=== PATIENT | female | born 1950 | race Asian ===

== ENCOUNTER 2025-06-29 14:38 | Outpatient (AMB) | payer MEDICAID, SELFPAY ==
--- NOTE | 2025-06-29 15:17 | A.OFFVIS_ITS ---
Intake Visit Reasons: Follow Up Allergies No Known Allergies Allergy (Verified 06/25/25 10:48) HPI Comments Details: 75 yo RH woman with type II DM, osteoarthritis s/p bilateral knee replacement, was here with difficulty walking and loss of balance. This started around 2020 when she started using a cane. In 2022, she started using a walker and now was in wheel chair. She could still get up and use a walker with great difficulty. Her bladder function was ok. Her memory was except during last few months she was getting confused. In 2020, she had an EMG/NCS in [facility] that revealed severe axonal peripheral neuropathy. She also had MRI of whole spine in Aug, which did not reveal any significant issues or explanation of her problem. She is presenting with painful diabetic neuropathy. She experiences neuropathic pain affecting her lower extremities with pricking quality, fluctuating in soreness but more intense at night. Difficulty in ambulation requires the use of a walker for support, and she frequently needs assistance for short distances such as going to the bathroom. While the use of pregabalin initially was prescribed, it resulted in unwanted urinary incontinence leading to its discontinuation. She currently relies on Tylenol, with minimal efficacy in pain management. The patient also has a prior diagnosis of Alzheimer?s disease dementia, as evidenced by a brain MRI showing significant changes. Her cognitive function remains relatively intact, with a preserved ability to remember past events even though recollection of recent happenings is slightly delayed. She demonstrates no motor symptoms suggestive of Parkinson?s disease, and her Alzheimer?s symptoms are not detrimental to her day-to-day life tasks. Her family notes that she sustains her familiarity with people and surroundings and does not exhibit hardness in feelings or problematic emotional regulation. [facility] Medical History (Updated 06/29/25 @ 15:28 by Luz Aguilar MD) Osteoarthritis Hyperlipemia Hypothyroidism (acquired) HTN (hypertension) Type 2 diabetes mellitus Review of Systems Narrative - Neurological: Reports severe neuropathic pain in feet and legs, worsened at night. Denies tremors or Parkinsonian symptoms. - Cognitive: Reports minor delay in recalling recent activities, maintains long- term memory intact. - Genitourinary: Previously experienced urinary incontinence with pregabalin. - Musculoskeletal: Reports difficulty in ambulation and use of walker for support. Physical Exam Neuro Other: Mental Status: Alert and awake with normal spontaneity of speech fluency comprehension and affect. Cranial Nerves: CN II: Visual dyer full to confrontation, visual acuity intact. CN III, IV, : Pupils equal, round, reactive to light and accommodation. Extraocular movements are normal. CN V: Facial sensation is normal. CN VII: Facial movements symmetrical. CN VIII: Hearing intact to bedside conversation is normal. CN IX, X: Palate elevates symmetrically. CN XI: Shoulder shrug and head turn symmetrical. CN XII: Tongue midline without atrophy or fasciculations. Motor: She is in a wheelchair. There was moderate feet and for leg swelling. Deep tendon reflexes are absent. Extrapyramidal: Full facial expressions and blinking. No rigidity. Movements are appropriate with no tremor or abnormality. Speech: Normal; no dysarthria or tremor. Assessment & Plan Assessment & Plan (1) Alzheimer disease: Comment: MRI brain WO at [facility] in January 2025: Mod to severe atrophy MRI C + T + LS spine in [facility] in Aug 2024: Diff DJD, mild spondyloarthritis in cervical spine, mild to mod L 3/4 stenosis EMG/NCS L arm and legs in [facility] in 2020: No response in legs, arm was ok Code(s): G30.9 - Alzheimer's disease, unspecified; F02.80 - Dementia in other diseases classified elsewhere, unspecified severity, without behavioral disturbance, psychotic disturbance, mood disturbance, and anxiety Category: Medical (2) Multifactorial gait disorder: Code(s): R26.89 - Other abnormalities of gait and mobility Category: Medical (3) Diabetic neuropathy: Code(s): E11.40 - Type 2 diabetes mellitus with diabetic neuropathy, unspecified Category: Medical Qualifiers: Diabetes mellitus type: type 2 Diabetes mellitus complication detail: diabetic polyneuropathy Qualified Code(s): E11.42 - Type 2 diabetes mellitus with diabetic polyneuropathy Plan Impression: 1. 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 Painful diabetic neuropathy 3. Alzheimer dementia Recommendations 1. Reassurance and education 2. She was using Tylenol at night for pain, which she can use 3. Carbamazepine 100 mg 1-2 at night for pain 4. She has been using alprazolam 0.25 mg at night obtain from [facility] at night, which has been working for sleep Medications: New carbamazepine ER (Carbatrol) 100 mg PO DAILY 30 caps 0RF Coding Level of Care Code Est Pt Level 4 (27716) Diagnoses Alzheimer disease G30.9; F02.80 Multifactorial gait disorder R26.89 Diabetic polyneuropathy associated with type 2 diabetes mellitus E11.42 Diabetes mellitus type: type 2 Diabetes mellitus complication detail: diabetic polyneuropathy
--- OUTSIDE RECORDS SUMMARY | 2025-06-29 18:27 | XMS_ITS | Encounter Summary ---
Author Organization [facility] Address [address] [address] Care Team Providers Care Marketing Sales Supervisor Name Role Phone Samantha Mendez Primary Care Provider [phone] Encounter Details Date Type Department Care Team ([facility] st Contact Info) Description 03/15/2023 Interim Notes [facility] [address] [place] [address] [place] [address] [place], [place] [id number] Social History Tobacco Use Types Packs/Day Years Used Date Smoking Tobacco: Never Smokeless Tobacco: Never Alcohol Use Standard Drinks/Week Comments Not Currently 0 (1 standard drink = 0.6 oz pur e alcohol) Social Connections Answer Date Recorded Social Connections and Isolation 1 05/24/2022 Financial Resource Strain Answer Date R ecorded Financial Resource Strain 0 2021 Stress Answer Date Recorded Stress 0 05/24/2022 Physical Activity Answer Date Recorded Physical Activity 0 05/24/2022 Food Insecurity Answer Date Recorded Food 0 05/24/2022 Transportation Needs Answer Date Record ed Transportation 0 05/24/2022 Housing Stability Answer Date Recorded Housing 0 05/24/2022 Safety and Environment Answer Date Baljeet rded Safety 0 05/24/2022 Utilities Answer Date Recorded Utilities 0 05/24/2022 Employment Answer Date Recorded Stress 0 05/24/2022 Comments No Sex and Gender Information Value Date Recorded Sex Assigned at Female 05/24/2022 6:42 AM PDT Legal Sex Female 1:16 PM PDT Gender Identity Female 05/24/2022 6:42 AM PDT Sexual Orientation Straight 05/24/2022 6: 42 AM PDT COVID-19 Exposure Response Date Recorded In the last 10 days, have yo u been in contact with someone who was confirmed or suspected to have Coronavirus/COVID-19? No / Unsure 02/26/2023 9:38 AM EDT documented as of this encounter Plan of Treatment Upcoming Encounters Date Type Department Care Team ([facility] st Contact Info) Description 07/08/2025 9:40 AM EDT Office Visit [facility] [address] [place] [phone] Dyllan Morgan MD [address] [place] [id number] documented as of this encounter Visit Diagnoses Not on filedocumented in this encounter Additional Health Concerns Assessment Noted Time PHQ-9 Depression Total Score: 0 01/10/20 23 2:27 PM PDT A Depression follow-up plan has been documented for the patient 01/09/2023 5:35 PM PDT documented as of this encounter Care Teams Marketing Sales Supervisor Relationship Specialty Start Date End Date Samantha Mendez PA [address] [place] [id number] PCP - General Primary Care 10/12/23 documented as of this encounter
--- OUTSIDE RECORDS SUMMARY | 2025-06-29 18:27 | XMS_ITS | Clinical Summary ---
Author Organization [facility] Address [facility] [address] [place] [address] Care Team Providers Care Chemical Treatment Operator Name Role Phone Samantha Mendez Primary Care Provider [phone] Source Comments PLEASE NOTE, if this patient is a minor, it may be UNLAWFUL to discuss sensitive information that is contained in these records (such as FAMILY PLANNING, MENTAL HEALTH or SUBSTANCE ABUSE) with the minor patient's parent or other person without the patient's specific authorization.[facility] Allergies No known active allergies Medications betahistine HCl (BETAHISTINE, BULK, MISC)Indications: vertigo by miscellaneous route Indications: vertigo Active pregabalin (LYRICA) 75 mg capsuleIndication s:diabetic peripheral neuropathy Take 75 mg by mouth 1 to 2 (one to two) times daily as needed Indications: diabetic complication causing injury to some body nerves Active pramoxine-calamin e (CALOHIST) 1-8 % lotion Apply topically 2 (two) times daily as needed for other reason (itching) 180 mL 1 04/19/20 23 Active letrozole (FEMARA) 2.5 mg tablet Take 1 Tablet by mouth once daily 30 Tablet 2 05/21/20 23 Active ammonium lactate (LAC-HYDRIN) 12 % lotion Apply topically as needed for dry skin 400 g 1 05/30/20 23 Active meclizine (ANTIVERT) 25 mg tablet Take 1 Tablet by mouth once daily as needed for nausea or dizziness 30 Tablet 1 06/26/20 23 Active MISCELLANEOUS MEDICAL SUPPLY MISCIndications:F unctional incontinence,Prim karlos osteoarthritis of both knees by miscellaneous route daily. XXL adult pull ups. Dx: Functional incontinence Duration: lifetime 100 Each 2 04/16/20 24 Active MISCELLANEOUS MEDICAL SUPPLY MISCIndications:F unctional incontinence,Prim karlos osteoarthritis of both knees,Hypothyroid ism, unspecified type by miscellaneous route daily Toilet seat riser with side bars. Dx: Functional incontinence, Osteoarthritis of knees bilaterally. Duration: 99 years 1 Each 12/25/19 Active compress.stocking ,knee,reg,medIndi cations:Edema of both lower extremities due to peripheral venous insufficiency,Deepak icose veins of both legs with edema 15-20 mm Hg 1 pair of compression stockings. JARETT 99 2 Each 04/23/20 Active multivitamin tablet Take 1 Tablet by mouth once daily 90 Tablet 2 01/03/20 25 Active amLODIPine (NORVASC) 5 mg tablet TAKE 1 TABLET BY MOUTH EVERY DAY 90 Tablet 3 01/28/20 [address] aspirin [address] tablet Take 1 Tablet by mouth once daily 90 Tablet 3 01/22/20 25 026 Active metoprolol succinate XL (TOPROL-XL) 50 mg 24 hr tablet TAKE 1 TABLET BY MOUTH 2 TIMES DAILY INDICATIONS: HIGH BLOOD PRESSURE 180 Tablet 1 01/28/20 25 Active valsartan (DIOVAN) 160 mg tabletIndications :Primary hypertension Take 1 Tablet by mouth once daily. 90 Tablet 1 03/27/20 25 Active atorvastatin (LIPITOR) 10 mg tabletIndications :Prescription refill TAKE 1 TABLET BY MOUTH EVERY DAY 90 Tablet 1 04/01/20 25 Active metFORMIN (GLUCOPHAGE) 500 mg tabletIndications :Type 2 diabetes mellitus with other neurologic complication, without long-term current use of insulin Take 1 Tablet by mouth once daily with breakfast. 90 Tablet 1 04/09/20 25 Active cetirizine (ZYRTEC) 10 mg tabletIndications :Prescription refill Take 1 Tablet by mouth once daily as needed for allergies. 90 Tablet 1 05/26/20 25 Active dapagliflozin propanediol (FARXIGA) 10 mg tab 30 each, 0 Refill(s), TAKE 1 TABLET BY MOUTH EVERY DAY BEFORE LUNCH, 0 Refills, 04/03/23 2:24:00 PM EDT, Partial fill upon patient request if the prescription is for a schedule II opioid drug. 04/03/20 Active ketorolac (ACULAR) 0.5 % ophthalmic solution 10 mL, 0 Refill(s), PLEASE SEE ATTACHED FOR DETAILED DIRECTIONS, 0 Refills, 04/03/23 2:24:00 PM EDT, Partial fill upon patient request if the prescription is for a schedule II opioid drug. 04/03/20 Active metoprolol tartrate (LOPRESSOR) 50 mg tablet Take 50 mg by mouth. 06/26/20 Active DAILY-SAHARA, WITH FOLIC ACID, 400 mcg tab Take 1 Tablet by mouth once daily. 04/10/20 Active pregabalin (LYRICA) 150 mg capsule Take 150 mg by mouth nightly at bedtime. 04/06/20 Active MISCELLANEOUS MEDICAL SUPPLY MISCIndications:F unctional incontinence by miscellaneous route once daily DX: urinary incontinence Supply: bed chucks/pads JARETT: 99. 100 Each 3 05/27/20 Active levothyroxine 50 mcg tabletIndications :Other specified hypothyroidism Take 1 Tablet by mouth every morning before breakfast. 90 Tablet 1 05/27/20 Active triamcinolone (KENALOG) 0.1 % ointmentIndicatio ns:Eczema, unspecified type Apply topically 2 (two) times daily. 15 g 05/27/20 25 Active hydrOXYzine HCL (ATARAX) 10 mg tabletIndications :Eczema, unspecified type,Itching,Itch y scalp Take 1 Tablet by mouth 3 (three) times daily as needed for anxiety or itching. 90 Tablet 2 06/23/20 25 Active ketoconazole (NIZORAL) 2 % shampooIndication s:Itchy scalp Apply topically once daily as needed for itching. 120 mL 2 06/23/20 Active gemfibroziL (LOPID) 600 mg tablet 600 Unknown, oral, 0 Refill(s), Take 600 mg by mouth, Refills 0, 06/25/22 8:00:00 PM EDT, Partial fill upon patient request if the prescription is for a schedule II opioid drug. 06/25/20 025 Disconti nued(The rapy complete d/Not needed) Active Problems Problem Noted Date Diagnosed Date Venous hypertension of lower extremity 5 Leg swelling 12/15/2024 Osteoarthritis of knees, bilateral 04/19/2023 Edema of both lower extremit ies due to peripheral venous insufficiency 01/09/2023 Glaucoma 06/07/2022 Cataract 06/07/2022 Primary hypertension 05/24/2022 Vertigo 05/24/2022 Type 2 diabetes mellitus, wi thout long-term current use of insulin 05/24/2022 Hyperlipidemia 05/24/2022 Hypothyroid 05/24/2022 Hx of mastectomy, right 05/24/2022 History of right breast cancer 05/24/2022 Total knee replacement status, bilateral 022 Risk for falls 05/24/2022 Asymptomatic varicose veins of bilateral lower e xtremities 05/24/2022 Neuropathy 05/24/2022 Encounters Date Type Department Care Team Description 06/23/2025 8:00 AM EDT Telemedicine Visit [facility] [address] [place] [address] Sheng Trinh PA-C 05/27/2025 2:40 PM EDT Interim Notes [address] [address] 05/27/2025 2:20 PM EDT Office Visit [facility] [address] [place] [address] Sheng Trinh PA-C 04/23/2025 Interim Notes [address] [address] Rodo Cordero [place] 04/20/2025 Interim Notes [address] [address] Abbie Mueller [place] 04/14/2025 Results Follow-Up [address] [address] Sheng Trinh PA-C 04/09/2025 8:20 AM EDT Telemedicine Visit [address] [address] Sheng Trinh PA-C from Last 3 Months Immunizations Immunization Administration Dates Next Due [employer] COVID-19 Vaccine 10/14/2021,12/12/19 21,11/10/2020 Flu, Adjuvant, 65y+ (Fluad) 06/01/2023, Influenza (FLUZONE), high-do se, trivalent, PF 05/13/2024 PNEUMOCOCCAL CONJUGATE PCV 20 (Prevnar 20) 02/10 Pfizer COVID vaccine, COMSARANYA STATON, carlson cap, 12+ 05/23/2022,02/26/2022 Social History Tobacco Use Types Packs/Day Years Used Date Smoking Tobacco: Never Smokeless Tobacco: Never Tobacco Cessation:Counseling Given: Yes Alcohol Use Standard Drinks/Week Comments Not Currently 0 (1 standard drink = 0.6 oz pur e alcohol) Social Connections Answer Date Recorded How often do you feel lonely or isolated from th ose around you? 1 05/13/2024 Financial Resource Strain Answer Date R ecorded Hard to pay for: Food 1 05/13/2024 Stress Answer Date Recorded Do you feel these kinds of stress these days? 1 05/13/2024 Physical Activity Answer Date Recorded Physical Activity 0 05/24/2022 Food Insecurity Answer Date Recorded Hard to pay for: Food 1 05/13/2024 Transportation Needs Answer Date Record ed Hard to pay for: Transportation 1 05/13/2024 Housing Stability Answer Date Recorded Hard to pay for: Rent/Mortgage payment 1 05/13/2024 Safety and Environment Answer Date Baljeet rded Safety 0 05/24/2022 Utilities Answer Date Recorded Hard to pay for: Utilities 1 05/13 Employment Answer Date Recorded Stress 0 05/24/2022 Comments No Sex and Gender Information Value Date Recorded Sex Assigned at Female 05/24/2022 6:42 AM PDT Legal Sex Female 1:16 PM PDT Gender Identity Female 05/24/2022 6:42 AM PDT Sexual Orientation Straight 05/24/2022 6: 42 AM PDT Last Filed Vital Signs Vital Sign Reading Time Taken Comments Blood Pressure 120/70 05/27/2025 2:18 PM EDT Pulse 67 05/27/2025 2:18 PM EDT Temperature 36.2 C (97.1 F) 05/27/2025 2:18 PM EDT Respiratory Rate 18 05/27/2025 2:18 PM EDT Oxygen Saturation 100% 05/27/2025 2:18 PM EDT Inhaled Oxygen Concentration - - Weight 75.8 kg (167 lb) 04/09/2025 8:48 AM EDT Height 149.9 cm (4' 11 ) 05/27/2025 2:18 PM EDT Body Mass Index 33.73 04/09/2025 8:48 AM EDT Plan of Treatment Upcoming Encounters Date Type Department Care Team (Late st Contact Info) Description 07/08/2025 9:40 AM EDT Office Visit [facility] [address] [place] [address] Dyllan Morgan MD [address] [place] [address] Health Maintenance Due Date Last Done Comments Dental Examination 1950 Imm-DTaP/Tdap/Td (1 - Tdap) 1969 CT Colonography 1995 FIT/gFOBT 1995 Fecal DNA 1995 Flexible Sigmoidoscopy 1995 Imm-Zoster, Recombinant (1 of 2) 2000 Diabetes Foot Exam 07/04/2023 07/04/2022 Retinopathy Screening 01/03/2024 01/02/2023 , 01/02/2023, 06/05/2022 Imm-RSV (adult) (1 - 1-dose 75+ series) 2025 Falls Prevention 04/23/2025 04/23/2024, 05/24/2022 [id number] (2024- season) 2025 06/01/2023, 05/23/2022, 02/26/2022, Additional history exists Imm-Influenza (#1) 2025 05/13/2024, 0 06/01/2023, 05/23/2022 TSH Monitoring 05/13/2025 05/13/2024, 06/0 11/2023, 06/11/2023, Additional history exists Hemoglobin A1c 10/14/2025 04/13/2025, 04/1 09/2024, 05/13/2024, Additional history exists Lipid Screening 04/13/2026 04/13/2025, 09/0 11/2023, 06/11/2023, Additional history exists Serum Creatinine 04/13/2026 04/13/2025, 07/2025, 05/13/2024, Additional history exists Annual Wellness (Adult): Indicated (All Coverage) 05/27/2026 05/27/2025, 05/13/2024, 01/09/2023 Tobacco Screening 05/27/2026 05/27/2025, 01/09/2023 Urine Albumin Creatinine Ratio Screening 06/19/2026 06/19/2025, 05/13/2024, 01/09/2023 Breast Cancer Screening (Mammogram) 12/12/2026 12/12/2024, 07/08/2022 Colonoscopy 01/18/2033 01/18/2023 Colorectal Cancer Screening 01/18/2033 Hepatitis C Screening Completed 05/25/2022 Bone Density Screening Completed 07/11/2022 Imm-Pneumococcal 50+ Completed 02/11/2024 Alcohol and Drug Screen Addressed 01/03/20, 05/13/2024, 04/23/2024, Additional history exists Overridden with the intention of not completing the topic Depression Annual Screen Completed 01/02/2025 Procedures Procedure Name Priority Date/Time Associated Diagnosis Comments MICROALBUMIN/CREATINI NE RATIO, URINE, RANDOM Routine 06/19/2025 12:29 PM EDT Type 2 diabetes mellitus with other neurologic complication, without long-term current use of insulin MEDICATIONS SCANNED DOCUMENT 04/20/2025 3:00 AM EDT MEDICATIONS SCANNED DOCUMENT 04/17/2025 3:00 AM EDT LIPID PANEL Routine 04/13/2025 8:41 AM EDT Type 2 diabetes mellitus with other neurologic complication, without long-term current use of insulin ([facility]) HEMOGLOBIN GLYCOSYLATED A1C Routine 04/13/2025 8:41 AM EDT Type 2 diabetes mellitus with other neurologic complication, without long-term current use of insulin ([facility]) COMPREHENSIVE METABOLIC PANEL Routine 04/13/2025 8:41 AM EDT Type 2 diabetes mellitus with other neurologic complication, without long-term current use of insulin ([facility]) BLOOD COUNT COMPLETE AUTO&AUTO DIFRNTL WBC Routine 04/13/2025 8:41 AM EDT Type 2 diabetes mellitus with other neurologic complication, without long-term current use of insulin ([facility]) MEDICATIONS SCANNED DOCUMENT 04/09/2025 3:00 AM EDT THYROID CASCADING REFLEX PANEL Routine 05/13/2024 4:07 PM EDT Hypothyroidism, unspecified type REFERRAL FOR COLONOSCOPY Routine 01/18/2023 3:00 AM EDT Colon cancer screening EYE EXAM 01/02/2023 3:00 AM EDT HISTORIC DEXA SCAN 07/11/2022 3: 00 AM EDT HISTORIC MAMMOGRAM 07/08/2022 3: 00 AM EDT REFERRAL TO PODIATRY Routine 07/04/2022 3:00 AM EDT Type 2 diabetes mellitus without complication, without long-term current use of insulin ([facility]) Neuropathy HEPATITIS C AB W/RFLX HCV RNA, QT, RT PCR Routine 05/25/2022 8:36 AM EDT Encounter to establish care Primary hypertension Type 2 diabetes mellitus without complication, without long-term current use of insulin ([facility]) Hyperlipidemia, unspecified hyperlipidemia type from Last 3 Months or Most Recently Relevant to Health Maintenance Results * MICROALBUMIN/CREATININE RATIO, URINE, RANDOM Urine Routine (06/19/2025 12:29 PM EDT) CREATININE, RANDOM URINE 33 20 - 275 mg/dL 06/20/2025 5:46 PM EDT [facility] MICROALBUMIN 0.8 mg/dL 06/20/2025 5:46 PM EDT [facility] MICROALBUMIN/CRE ATININE RATIO, RANDOM URINE 24 <30 mg/g creat 06/20/2025 5:46 PM EDT [facility] Urine Urine specimen / Unknown 06/19/2025 12:29 PM EDT 06/20/2025 5:36 AM EDT Narrative [facility] [employer] [facility] - 06/20/2025 5:51 PM EDT Reference Range Not established . The ADA defines abnormalities in albumin excretion as follows: . Albuminuria Category Result (mg/g creatinine) . Normal to Mildly increased <30 Moderately increased 30-299 Severely increased > OR = 300 . The ADA recommends that at least two of three specimens collected within a 3-6 month period be abnormal before considering a patient to be within a diagnostic category. us Sheng Trinh PA-C LAB URINE AMBULATORY Final R esult [facility] [address] [address], [facility] [address] [place] [address] * MEDICATIONS SCANNED DOCUMENT (04/20/2025 3:00 AM EDT) Only the most recent of3 resultswithin the time period is included. 04/20/2025 3:00 AM EDT us Samantha ADAMS SCAN MEDS OTHER ORDERS Final Res ult * (ABNORMAL) BLOOD COUNT COMPLETE AUTO&AUTO DIFRNTL WBC Routine (04/13/2025 8:41 AM EDT) WHITE BLOOD CELL COUNT 6.7 3.8 - 10.8 Thousand/ uL 04/14/2025 4:00 AM EDT [employer] RED BLOOD CELL COUNT 3.91 3.80 - 5.10 Million/u L 04/14/2025 4:00 AM EDT [facility] HEMOGLOBIN 11.3(L) 11.7 - 15.5 g/dL 04/14/2025 4:00 AM EDT [facility] HEMATOCRIT 35.5 35.0 - 45.0 % 04/14/2025 4:00 AM [employer] MCV 90.8 80.0 - 100.0 fL 04/14/2025 4:00 AM [employer] MCH 28.9 27.0 - 33.0 pg 04/14/2025 4:00 AM [employer] MCHC 31.8(L) 32.0 - 36.0 g/dL 04/14/2025 4:00 AM [employer] RDW 14.1 11.0 - 15.0 % 04/14/2025 4:00 AM [employer] PLATELET COUNT 169 140 - 400 Thousand/ uL 04/14/2025 4:00 AM EDT [facility] MPV 11.6 7.5 - 12.5 fL 04/14/2025 4:00 AM EDT [facility] ABSOLUTE NEUTROPHILS 3,953 1,500 - 7,800 cells/uL 04/14/2025 4:00 AM EDT [facility] ABSOLUTE LYMPHOCYTES 1,849 850 - 3,900 cells/uL 04/14/2025 4:00 AM EDT [facility] ABSOLUTE MONOCYTES 409 200 - 950 cells/uL 04/14/2025 4:00 AM EDT [facility] ABSOLUTE EOSINOPHILS 429 15 - 500 cells/uL 04/14/2025 4:00 AM EDT [facility] ABSOLUTE BASOPHILS 60 0 - 200 cells/uL 04/14/2025 4:00 AM EDT [facility] NEUTROPHILS PCT 59 % 4:00 AM EDT [facility] LYMPHOCYTES 27.6 % 04/14/2025 4:00 AM [employer] [facility] MONOCYTES 6.1 % 04/14/2025 4:00 AM [employer] EOSINOPHILS 6.4 % 04/14/2025 4:00 AM [facility] BASOPHILS 0.9 % 04/14/2025 4:00 AM [facility] Blood Blood / Unknown 04/13/2025 8 :41 AM EDT 04/14/2025 1:56 AM EDT Narrative [facility] - 04/14/2025 4:26 AM EDT FASTING:YES For adults, a slight decrease in the calculated MCHC value (in the range of 30 to 32 g/dL) is most likely not clinically significant; however, it should be interpreted with caution in correlation with other red cell parameters and the patient's clinical condition. us Sheng Trinh PA-C LAB - BLOOD DRAW Final Resul t [facility] [address] [address], [facility] [address] [address] * (ABNORMAL) HEMOGLOBIN GLYCOSYLATED A1C Routine (04/13/2025 8:41 AM EDT) HEMOGLOBIN A1C 6.5(H) <5.7 % 04/14/2025 5:01 AM EDT [facility] Blood Blood / Unknown 04/13/2025 8 :41 AM EDT 04/14/2025 1:56 AM EDT Narrative [facility] - 04/14/2025 5:11 AM EDT FASTING:YES For someone without known diabetes, a hemoglobin A1c value of 6.5% or greater indicates that they may have diabetes and this should be confirmed with a follow-up test. . For someone with known diabetes, a value <7% indicates that their diabetes is well controlled and a value greater than or equal to 7% indicates suboptimal control. A1c targets should be individualized based on duration of diabetes, age, comorbid conditions, and other considerations. . Currently, no consensus exists regarding use of hemoglobin A1c for diagnosis of diabetes for children. . us Sheng Trinh PA-C LAB - BLOOD DRAW Final Resul t [facility] [address] [address], [facility] [address] [address] * LIPID PANEL Routine (04/13/2025 8:41 AM EDT) CHOLESTEROL, TOTAL 142 <200 mg/dL 04/14/2025 7:25 AM EDT [facility] HDL CHOLESTEROL 59 > OR = 50 mg/dL 04/14/2025 7:25 AM EDT [facility] TRIGLYCERIDES 84 <150 mg/dL 04/14/2025 7:25 AM EDT [facility] LDL-CHOLESTEROL 67 mg/dL (calc) 04/14/2025 7:25 AM EDT [facility] CHOL/HDLC RATIO 2.4 <5.0 (calc) 04/14/2025 7:25 AM EDT [facility] NON-HDL CHOLESTEROL 83 <130 mg/dL (calc) 04/14/2025 7:25 AM EDT [facility] Blood Blood / Unknown 04/13/2025 8 :41 AM EDT 04/14/2025 6:02 AM EDT Narrative [facility] - 04/14/2025 7:25 AM EDT FASTING:YES Reference range: <100 . Desirable range <100 mg/dL for primary prevention; <70 mg/dL for patients with CHD or diabetic patients with > or = 2 CHD risk factors. . LDL-C is now calculated using the Shantell calculation, which is a validated novel method providing better accuracy than the Friedewald equation in the estimation of LDL-C. Robby ALEXIS et al. GEORGE. 2013;310(19): 8411-5590 (http://education.Novav[employer] AB/faq/VDU352) For patients with diabetes plus 1 major ASCVD risk factor, treating to a non-HDL-C goal of <100 mg/dL (LDL-C of <70 mg/dL) is considered a therapeutic option. us Sheng Trinh PA-C LAB - BLOOD DRAW Final Resul t [email or web address] [address] [place] [address], [employer] [address] [place] [id number] * (ABNORMAL) COMPREHENSIVE METABOLIC PANEL Routine (04/13/2025 8:41 AM EDT) GLUCOSE 130(H) 65 - 99 mg/dL 04/14/2025 7:25 AM EDT [facility] UREA NITROGEN (BUN) 15 7 - 25 mg/dL 04/14/2025 7:25 AM EDT [facility] CREATININE (blood) 0.87 0.60 - 1.00 mg/dL 04/14/2025 7:25 AM EDT [facility] EGFR 70 > OR = 60 mL/min/1. 73m2 04/14/2025 7:25 AM EDT [facility] BUN/CREATININE RATIO SEE NOTE: 6 - 22 (calc) 04/14/2025 7:25 AM EDT [facility] SODIUM 134(L) 135 - 146 mmol/L 04/14/2025 7:25 AM EDT [facility] POTASSIUM 4.4 3.5 - 5.3 mmol/L 04/14/2025 7:25 AM EDT [facility] CHLORIDE 99 98 - 110 mmol/L 04/14/2025 7:25 AM EDT [facility] CARBON DIOXIDE 28 20 - 32 mmol/L 04/14/2025 7:25 AM EDT [facility] CALCIUM 9.2 8.6 - 10.4 mg/dL 04/14/2025 7:25 AM EDT [facility] PROTEIN, TOTAL 6.6 6.1 - 8.1 g/dL 04/14/2025 7:25 AM EDT [facility] ALBUMIN 4.0 3.6 - 5.1 g/dL 04/14/2025 7:25 AM EDT [facility] GLOBULIN 2.6 1.9 - 3.7 g/dL (calc) 04/14/2025 7:25 AM EDT [facility] ALBUMIN/GLOBULI N RATIO 1.5 1.0 - 2.5 (calc) 04/14/2025 7:25 AM [employer] [facility] BILIRUBIN, TOTAL 0.4 0.2 - 1.2 mg/dL 04/14/2025 7:25 AM [facility] ALKALINE PHOSPHATASE 70 37 - 153 U/L 04/14/2025 7:25 AM [facility] AST 17 10 - 35 U/L 04/14/2025 7:25 AM [employer] [facility] ALT 12 6 - 29 U/L 04/14/2025 7:25 AM [facility] Blood Blood / Unknown 04/13/2025 8 :41 AM EDT 04/14/2025 6:02 AM EDT Narrative [facility] - 04/14/2025 7:25 AM EDT FASTING:YES . Fasting reference interval . For someone without known diabetes, a glucose value >125 mg/dL indicates that they may have diabetes and this should be confirmed with a follow-up test. . Not Reported: BUN and Creatinine are within reference range. . Sheng Trinh PA-C LAB - BLOOD DRAW Final Resul t [facility] [address] [address], [facility] [address] [place] [address] * THYROID CASCADING REFLEX PANEL (05/13/2024 4:07 PM EDT) TSH 1.32 0.40 - 4.50 mIU/L [facility] Blood Blood / Unknown 05/13/2024 4 :07 PM EDT 05/13/2024 4:07 PM EDT Sheng Trinh PA-C LAB - BLOOD DRAW Edited Resu lt - Final [facility] [address] [address], [facility] [address] [address] * REFERRAL FOR COLONOSCOPY (01/18/2023 3:00 AM EDT) 01/18/2023 3:00 AM EDT Marlene Betancur SWITCHING CLERK-C REFERRAL Edited Resul t - Final * EYE EXAM (01/02/2023 3:00 AM EDT) 01/02/2023 3:00 AM EDT Marlene Betancur SWITCHING CLERK-C OTHER Final Result * HISTORIC DEXA SCAN (07/11/2022 3:00 AM EDT) 07/11/2022 3:00 AM EDT Marlene Betancur SWITCHING CLERK-C IMG DXA Final Result * HISTORIC MAMMOGRAM (07/08/2022 3:00 AM EDT) 07/08/2022 3:00 AM EDT Samantha ADAMS IMG MAMMO Final Result * REFERRAL TO PODIATRY (07/04/2022 3:00 AM EDT) 07/04/2022 3:00 AM EDT Marlene Betancur SWITCHING CLERK-C REFERRAL Edited Resul t - Final * HEPATITIS C AB W/RFLX HCV RNA, QT, RT PCR (05/25/2022 8:36 AM EDT) HEPATITIS C ANTIBODY NON-REACT KRISTEN NON-REACT KIRSTEN [facility] SIGNAL TO CUT-OFF 0.19 <1.00 [employer] Comment: HCV antibody was non-reactive. There is no laboratory evidence of HCV infection. In most cases, no further action is required. However, if recent HCV exposure is suspected, a test for HCV RNA (test code 55182) is suggested. For additional information please refer to http://education.Re5ult/faq/TJB81r3 (This link is being provided for informational/ educational purposes only.) Blood Blood / Unknown 05/25/2022 8 :36 AM EDT 05/25/2022 8:37 AM EDT Narrative [facility] - 05/25/2022 10:14 PM EDT FASTING:YES Marlene GARNERP-C LAB - BLOOD DRAW Final Resul t [email or web address] [address] [address], [facility] [address] [address] from Last 3 Months or Most Recently Relevant to Health Maintenance [place] Care Teams Chemical Treatment Operator Relationship Specialty Start Date End Date Samantha Mendez PA [address] [place] [id number] PCP - General Primary Care 10/12/23
== END 2025-06-29 15:33 | disposition home or self-care (01) ==
LOC: HO.HSM 14:38
PROVIDERS: PCP Physician Assistant; Visit Provider Psychiatry & Neurology Neurology
DX: G30.9 Alzheimer's disease, unspecified (principal); F02.80 Dementia in other diseases classified elsewhere, unspecified severity, without behavioral disturbance, psychotic disturbance, mood disturbance, and anxiety; R26.89 Other abnormalities of gait and mobility; E11.42 Type 2 diabetes mellitus with diabetic polyneuropathy
CPT/HCPCS: 99214

== ENCOUNTER → 2025-06-29 14:38 | Outpatient (BNVA) | payer MEDICAID, SELFPAY | PROVIDERS: PCP Physician Assistant; Visit Provider Psychiatry & Neurology Neurology | DX: G30.9 Alzheimer's disease, unspecified (principal); F02.80 Dementia in other diseases classified elsewhere, unspecified severity, without behavioral disturbance, psychotic disturbance, mood disturbance, and anxiety; R26.89 Other abnormalities of gait and mobility; E11.42 Type 2 diabetes mellitus with diabetic polyneuropathy | CPT/HCPCS: 99212 ==